=== PATIENT | male | born 1995 | race Caucasian/White ===

== ENCOUNTER 2023-07-05 10:17 | Emergency (ER) | payer OTHER ==
[~2023-07-05] VITALS: Ht 188 cm; Wt 138.3 kg
[2023-07-05 10:40] VITALS: BP 135/88
== END 2023-07-05 14:48 | disposition home or self-care (01) ==
LOC: ER 10:17
DX: G43.909 Migraine, unspecified, not intractable, without status migrainosus (principal)
CPT/HCPCS: 70450; 99284-25; A9270